=== PATIENT | male | born 1965 | race Caucasian/White ===

== ENCOUNTER 2020-03-28 13:02 | Emergency (ER) | payer OTHER ==
[~2020-03-28] VITALS: Ht 182.9 cm; Wt 94.7 kg
--- NOTE | 2020-03-28 13:55 | NUR ---
PT A&OX4, RESP EVEN & UNLABORED, SPEECH CLEAR. STATES "I HAVEN'T BEEN FEELING MYSELF LATELTY" X 1 MONTH; WORSE IN PAST 2 WEEKS. REPORTS FLUCTUATING BP, FEELING WARM BUT NO FEVER, INTERMITTENT SCHREIBER, INTERMITTENT COUGH. DENIES DYSPNEA, RECENT ILLNESS, CARDIAC HX. REPORTS "A LOT" OF GERD SX; HAS BEEN TAKING GAVISCON.
[2020-03-28] MEDS ORDERED: SIMV40TA20 PO (14:06)
--- NOTE | 2020-03-28 14:33 | NUR ---
DR HUYNH BS FOR EXAM
[2020-03-28] MEDS ORDERED: SODIUM CHLORIDE FLUSH 10ML SYR IVF ONE (15:00)
[2020-03-28] MEDS ORDERED: IBUPROFEN 600 MG TABLET PO ONE (15:00)
[2020-03-28 15:13] LABS: BASOPHILS # (AUTO) 0.03 x10^3/uL (0-0.1); BASOPHILS % (AUTO) 1 % (0-1); EOSINOPHILS # (AUTO) 0.07 x10^3/uL (0-0.4); EOSINOPHILS % (AUTO) 1 % (1-7); LYMPHOCYTES # (AUTO) 1.19 x10^3/uL (1-3.4); LYMPHOCYTES % (AUTO) 16 % (22-44); MD NO; MEAN CORPUSCULAR HEMOGLOBIN 32.3 pg (27.5-34.5); MEAN CORPUSCULAR HGB CONC 34.4 g/dL (33.2-36.2); MEAN PLATELET VOLUME 6.9 fL (7.4-10.4); MONOCYTES # (AUTO) 0.57 x10^3/uL (0.2-0.8); MONOCYTES % (AUTO) 8 % (2-9); NEUTROPHILS # (AUTO) 5.47 x10^3/uL (1.8-6.8); NEUTROPHILS % (AUTO) 75 % (42-75); PLATELET COUNT 270 x10^3/uL (130-400); RED CELL DISTRIBUTION WIDTH 12.9 % (9.4-14.8)
[2020-03-28] MEDS ORDERED: IBUPROFEN 200 MG TABLET ONE (15:18)
[2020-03-28 15:25] LABS: ALANINE AMINOTRANSFERASE 46 U/L (12-78); ALBUMIN 4.3 g/dL (3.4-5.0); ANION GAP 6 mmol/L (5-15); CALCIUM 8.8 mg/dL (8.5-10.1); CHLORIDE 108 mmol/L (98-107)
--- NOTE | 2020-03-28 15:26 | NUR ---
PT REFUSING MOTRIN, STATES IT UPSETS HIS STOMACH. WILL CONSULT ERP
[2020-03-28 15:30] LABS: ALKALINE PHOSPHATASE 65 U/L (45-117); BILIRUBIN,TOTAL 0.4 mg/dL (0.2-1.0); CREATININE 0.89 mg/dL (0.7-1.3); TOTAL PROTEIN 7.7 g/dL (6.4-8.2); TROPONIN I < 0.015 ng/mL (0.000-0.045)
[2020-03-28] MEDS ORDERED: ACETAMINOPHEN 500 MG TABLET ONE (15:40)
--- NOTE | 2020-03-28 15:47 | NUR ---
TYLENOL GIVEN PER EMAR. PT C/O PHOTOPHOBIA; LIGHTS DIMMED.
[2020-03-28] MEDS ORDERED: ACETAMINOPHEN 500 MG TABLET PO ONE (16:00)
[2020-03-28] MEDS ORDERED: KETOROLAC 60 MG/2 ML ONE (17:51)
--- NOTE | 2020-03-28 17:57 | NUR ---
TO CT PER MALAIKA
[2020-03-28] MEDS ORDERED: KETOROLAC 30 MG/1 ML IM ONE (18:00)
--- NOTE | 2020-03-28 19:05 | NUR ---
PT REPORT TO ERIK EARL. PT CARE TRANSFERRED.
--- NOTE | 2020-03-28 19:07 | NUR ---
DR. HUYNH AT BEDSIDE FOR RECHECK.
[2020-03-28 19:23] VITALS: BP 137/80
== END 2020-03-28 19:45 | disposition home or self-care (01) ==
LOC: ED 14:34
DX: U07.1 COVID-19 (principal); R51 Headache; R50.9 Fever, unspecified; R05 Cough; R09.81 Nasal congestion; R94.31 Abnormal electrocardiogram [ECG] [EKG]; F41.1 Generalized anxiety disorder; I10 Essential (primary) hypertension; K21.9 Gastro-esophageal reflux disease without esophagitis; R07.9 Chest pain, unspecified
CPT/HCPCS: 36415; 70450; 71045; 80053; 84484; 85025; 93005; 96372; 99285; J1885; U0001